=== PATIENT | female | born 1955 | race Caucasian/White ===

== ENCOUNTER 2021-08-17 16:16 | Emergency (ER) | payer MEDICARE ==
[2021-08-17] MEDS ORDERED: Nitroglycerin 0.4 MG TAB 1 EACH ONE (16:36)
[2021-08-17] MEDS ORDERED: Aspirin Chewable 81 MG TAB ONE (16:36)
[2021-08-17 16:50] LABS: #Basophils 0.1 thou/uL (0.0-0.2); #Eosinphils 0.1 thou/uL (0.0-0.7); #Lymphocytes 1.8 thou/uL (1.20-3.40); #Monocytes 0.7 thou/uL (0.11-0.59); #Neutrophils 5.6 thou/uL (1.40-6.50); %Basophils 1.6 % (0.0-1.0); %Eosinophils 1.3 % (0.0-10.0); %Lymphocytes 21.6 % (21.0-51.0); %Monocytes 8.5 % (0.0-10.0); Hemoglobin 14.9 g/dL (12.0-16.0); Mean Corpuscular Hemoglobin 32.9 pg (27.0-31.0); Mean Corpuscular Volume 99.5 fL (78.0-98.0); Mean Platelet Volume 5.9 fL (7.4-10.4); Platelet Count 478 thou/uL (130-400); RBC Distribution Width 12.2 % (11.5-14.5); Red Blood Cell (RBC) Count 4.54 mill/uL (4.20-5.40); White Blood Cell (WBC) Count 8.3 thou/uL (4.8-10.8)
[2021-08-17 17:15] LABS: ALT (SGPT) 249 U/L (8-55); AST (SGOT) 185 U/L (5-34); Albumin 4.6 g/dL (3.4-4.8); Alkaline Phosphatase 260 U/L (40-110); Anion Gap 20 mmol/L (10-20); BUN (Urea Nitrogen) 10 mg/dL (9.8-20.1); Bilirubin, Total 2.4 mg/dL (0.2-1.2); Calc. Creatinine Clearance 0 mL/min (70-130); Calcium 9.7 mg/dL (7.8-10.44); Carbon Dioxide 24 mmol/L (23-31); Chloride 102 mmol/L (98-107); Potassium 4.1 mmol/L (3.5-5.1); Protein, Total 7.6 g/dL (5.8-8.1); Sodium 142 mmol/L (136-145)
[2021-08-17 17:17] LABS: Glucose 157 mg/dL (80-115)
[2021-08-17] MEDS ORDERED: Mag-Al Plus 1200 MG/1200 MG/120 MG/30 ML UDCUP ONE (17:22)
[2021-08-17] MEDS ORDERED: Famotidine/PF 20 mg/2ml Vial ONE (17:22)
[2021-08-17] MEDS ORDERED: Lidocaine Viscous Sol 2% 15 ml UD Cup ONE (17:22)
[2021-08-17] MEDS ORDERED: Fentanyl 100 MCG/2 ML VIAL ONE ×2 (18:18→20:55)
[2021-08-17 19:25] LABS: Clarity Clear (Clear); Leukocyte Negative (Negative); Nitrite Negative (Negative); Specific Gravity, Urine 1.032 (1.002-1.036); pH, Urine 5.5 (5.0-9.0)
[2021-08-17 19:26] LABS: Bacteria/HPF 1+ HPF (None Seen); Bilirubin Moderate (Negative); Blood, Urine Negative (Negative); Glucose, Urine (Dipstick) Negative (Negative); Ketone, Urine 15 mg/dL (Negative); Protein, Urine (Dipstick) 30 mg/dL (Neg-Trace); RBC/HPF 0-3 HPF (0-3); Squamous Epithelial 0-3 HPF (0-3); Urobilinogen > or = 8.0 mg/dL (Less than 2); WBC/HPF 0-3 HPF (0-3)
== END 2021-08-17 22:28 | disposition short-term general hospital (02) ==
LOC: BURERS 16:16
DX: R10.10 Upper abdominal pain, unspecified (principal); R79.89 Other specified abnormal findings of blood chemistry; R00.1 Bradycardia, unspecified; I45.10 Unspecified right bundle-branch block
CPT/HCPCS: 36415; 71045; 80053; 81001; 83880; 84484; 85025; 85379; 93005; 94760; 96374; 96375; 96376; J3010; S0028

== ENCOUNTER 2021-08-31 22:43 | Emergency (ER) | payer MEDICARE ==
[2021-08-31] MEDS ORDERED: Iopamidol 370 76% 100 ML VIAL FS ONE (22:44)
[2021-08-31] MEDS ORDERED: Fentanyl 100 MCG/2 ML VIAL ONE (23:17)
[2021-08-31] MEDS ORDERED: Ondansetron PF 4 MG/2 ML Vial ONE (23:18)
[2021-08-31 23:44] LABS: ALT (SGPT) 18 U/L (8-55); AST (SGOT) 15 U/L (5-34); Albumin 4.3 g/dL (3.4-4.8); Alkaline Phosphatase 100 U/L (40-110); Anion Gap 23 mmol/L (10-20); BUN (Urea Nitrogen) 9 mg/dL (9.8-20.1); Bilirubin, Total 0.6 mg/dL (0.2-1.2); Calc. Creatinine Clearance 0 mL/min (70-130); Calcium 10.2 mg/dL (7.8-10.44); Carbon Dioxide 22 mmol/L (23-31); Chloride 100 mmol/L (98-107); Glucose 237 mg/dL (80-115); Lipase 24 U/L (8-78); Potassium 3.6 mmol/L (3.5-5.1); Protein, Total 8.3 g/dL (5.8-8.1); Sodium 141 mmol/L (136-145)
[2021-08-31 23:54] LABS: Hemoglobin 13.4 g/dL (12.0-16.0); Mean Corpuscular HGB CONC 32.9 g/dL (32.0-36.0); Mean Corpuscular Hemoglobin 32.2 pg (27.0-31.0); Mean Platelet Volume 4.8 fL (7.4-10.4); Platelet Count 756 thou/uL (130-400); RBC Distribution Width 13.8 % (11.5-14.5); Red Blood Cell (RBC) Count 4.15 mill/uL (4.20-5.40); White Blood Cell (WBC) Count 15.9 thou/uL (4.8-10.8)
[2021-08-31 23:55] LABS: #Basophils 0.2 thou/uL (0.0-0.2); #Monocytes 0.7 thou/uL (0.11-0.59); #Neutrophils 13.9 thou/uL (1.40-6.50); %Basophils 1.6 % (0.0-1.0); %Eosinophils 0.2 % (0.0-10.0); %Lymphocytes 6.2 % (21.0-51.0); %Monocytes 4.6 % (0.0-10.0); %Neutrophils 87.5 % (42.0-75.0)
[2021-09-01 00:34] LABS: Bilirubin Negative (Negative); Blood, Urine Negative (Negative); Clarity Clear (Clear); Glucose, Urine (Dipstick) Negative (Negative); Ketone, Urine Trace mg/dL (Negative); Leukocyte Negative (Negative); Nitrite Negative (Negative); Protein, Urine (Dipstick) Negative (Neg-Trace); Urobilinogen 0.2 mg/dL (Less than 2)
[2021-09-01] MEDS ORDERED: Morphine 2 MG/ML VIAL ONE (00:46)
[2021-09-01] MEDS ORDERED: Ondansetron PF 4 MG/2 ML Vial ONE (00:46)
[2021-09-01] MEDS ORDERED: HYDROmorphone 0.5 MG/0.5 ML SYRINGE ONE (01:36)
== END 2021-09-01 02:31 | disposition short-term general hospital (02) ==
LOC: BURERS 22:43
DX: K91.840 Postprocedural hemorrhage of a digestive system organ or structure following a digestive system procedure (principal); K66.1 Hemoperitoneum; Z20.822 Contact with and (suspected) exposure to COVID-19
CPT/HCPCS: 74177; 80053; 81003; 83690; 84484; 85025; 93005; 94760; U0003; U0005; 96374; 96375; 96376; J2405; J3010; Q9967

== ENCOUNTER 2021-11-08 08:32 | Outpatient (CLI) | payer MEDICARE ==
[2021-11-08] MEDS ORDERED: Iopamidol 370 76% 100 ML VIAL FS ONE (08:33)
== END 2021-11-08 08:33 | disposition home or self-care (01) ==
LOC: BURCT 08:32
PROVIDERS: ATTEND Family Medicine
DX: K66.8 Other specified disorders of peritoneum (principal)
CPT/HCPCS: 74177; Q9967

== ENCOUNTER 2022-04-19 17:16 | Outpatient (CLI) | payer MEDICARE | END 2022-04-19 17:17 | disposition home or self-care (01) | LOC: BURRAD 17:16 | PROVIDERS: ATTEND Family Medicine | DX: M25.561 Pain in right knee (principal); M25.562 Pain in left knee ==

== ENCOUNTER 2022-07-11 17:08 | Outpatient (CLI) | payer MEDICARE | END 2022-07-11 17:09 | disposition home or self-care (01) | LOC: BURRAD 17:08 | PROVIDERS: ATTEND Family Medicine | DX: M47.22 Other spondylosis with radiculopathy, cervical region (principal); M50.121 Cervical disc disorder at C4-C5 level with radiculopathy | CPT/HCPCS: 72040 ==